=== PATIENT | female | born 1975 | race American Indian/Alaskan Native ===

== ENCOUNTER 2018-01-16 09:15 | Emergency (ER) | payer MEDICAID ==
--- NOTE | 2018-01-16 10:16 | Emergency Department Report ---
ED Back Pain/Injury HPI - General Chief Complaint: Extremity Injury, Lower Stated Complaint: LEG PAIN Time Seen by Provider: 01/16/18 09:42 Source: patient Limitations: No Limitations - History of Present Illness Initial Comments: Patient complain of left lower back pain is radiating down her left leg since yesterday. She said that is worse with increased movement. Denies any fall or any problem with her back. She denies any fever or chills. Pain to left lower back is 6 out of 10 and achy worsen movement. 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 Patient had a history of hysterectomy. Denies any abdominal pain. Denies any urinary burning, frequency or urgency. She has a history of liposuction and hysterectomy and denies any medical problem. Pain is worse with movement better with rest. No medication taken for pain. MD Complaint: back pain Onset/Timin -: days(s) Similar Symptoms Previously: No Place: home Radiation: left leg Severity: moderate Severity scale (0 -10): 6 Quality: aching Consistency: constant Improves With: none Worsens With: walking Context: unknown Associated Symptoms: denies: confusion, weakness, chest pain, numbness, difficulty walking, cough, difficulty urinating, diaphoresis, incontinence, fever/chills, constipation, headaches, abdominal pain, loss of appetite, malaise , nausea/vomiting, rash, seizure, shortness of breath, syncope Treatments Prior to Arrival: other (none) - Related Data Previous Rx's Medication Instructions Recorded Last Taken Type Ibuprofen [Motrin] 600 mg PO Q8H PRN #12 tablet 01/16/18 Unknown Rx Sulfamethoxazole/Trimethoprim 1 each PO BID 10 Days #20 tablet 01/16/18 Unknown Rx [Bactrim DS TAB] Allergies Allergy/AdvReac Type Severity Reaction Status Date / Time No Known Allergies Allergy Unverified 01/16/18 09:28 ED Review of Systems ROS: Stated complaint: LEG PAIN Other details as noted in HPI Constitutional: denies: chills, fever Eyes: denies: eye pain, eye discharge, vision change ENT: denies: ear pain, throat pain, congestion Respiratory: denies: cough, shortness of breath, SOB with exertion, SOB at rest , wheezing Cardiovascular: denies: chest pain, palpitations, edema, syncope Gastrointestinal: denies: abdominal pain, nausea, vomiting, diarrhea, constipation, hematemesis, melena, hematochezia Genitourinary: other (hysterectomy). denies: urgency, dysuria, frequency, hematuria, discharge Musculoskeletal: back pain, arthralgia. denies: joint swelling, myalgia Skin: denies: rash, lesions Neurological: denies: headache, weakness, numbness, paresthesias, confusion, abnormal gait, vertigo ED Past Medical Hx - Past Medical History Previous Medical History?: No - Surgical History Past Surgical History?: Yes Additional Surgical History: lipo. hysterectomy - Family History Family history: hypertension - Social History Smoking Status: Never Smoker Substance Use Type: None - Medications Home Medications: Home Medications Medication Instructions Recorded Confirmed Last Taken Type Ibuprofen [Motrin] 600 mg PO Q8H PRN #12 tablet 01/16/18 Unknown Rx Sulfamethoxazole/Trimethoprim 1 each PO BID 10 Days #20 tablet 01/16/18 Unknown Rx [Bactrim DS TAB] ED Physical Exam - General Limitations: No Limitations General appearance: alert, in no apparent distress - Head Head exam: Present: atraumatic, normocephalic, normal inspection - Eye Eye exam: Present: normal appearance, PERRL, EOMI Pupils: Present: normal accommodation - ENT ENT exam: Present: normal exam, normal orophraynx, mucous membranes moist, TM's normal bilaterally, normal external ear exam - Neck Neck exam: Present: normal inspection, full ROM, other (no C-spine tenderness). Absent: tenderness, lymphadenopathy - Respiratory Respiratory exam: Present: normal lung sounds bilaterally. Absent: respiratory distress, chest wall tenderness - Cardiovascular Cardiovascular Exam: Present: regular rate, normal rhythm, normal heart sounds, rubs. Absent: systolic murmur, diastolic murmur - GI/Abdominal GI/Abdominal exam: Present: soft, normal bowel sounds. Absent: distended, tenderness, guarding, rebound, rigid, organomegaly, mass - Extremities Exam Extremities exam: Present: normal inspection, full ROM, normal capillary refill , other (No cce. + 2 pulses in all extremities, no neurovascular compromise). Absent: tenderness, pedal edema, joint swelling, calf tenderness - Back Exam Back exam: Present: normal inspection, full ROM, other (ambulates without any difficulties). Absent: tenderness, CVA tenderness (R), CVA tenderness (L), muscle spasm, paraspinal tenderness, vertebral tenderness, rash noted - Expanded Back Exam Expanded Back exam: Absent: saddle anesthesia Back exam: Negative Straight Leg Raising: Left, Right - Neurological Exam Neurological exam: Present: alert, oriented X3, normal gait, reflexes normal. Absent: motor sensory deficit - Psychiatric Psychiatric exam: Present: normal affect, normal mood - Skin Skin exam: Present: warm, dry, intact, normal color. Absent: rash ED Course Vital Signs 01/16/18 09:28 Temperature 98.5 F Pulse Rate 68 Respiratory 18 Rate Blood Pressure 104/53 O2 Sat by Pulse 98 Oximetry - Reevaluation(s) Reevaluation #1: 01/16/18 12:57 Patient given Toradol 60 mg IM and Decadron 10 mg IM which relieved her pain. ED Medical Decision Making - Lab Data Lab Results 01/16/18 Range/Units 10:20 Urine Color Yellow (Yellow) Urine Turbidity Clear (Clear) Urine pH 7.0 (5.0-7.0) Ur Specific [place] 1.013 (1.003-1.030) Urine Protein <15 mg/dl (Negative) mg/dL Urine Glucose (UA) Neg (Negative) mg/dL Urine Ketones Neg (Negative) mg/dL Urine Blood Sm (Negative) Urine Nitrite Pos (Negative) Urine Bilirubin Neg (Negative) Urine Urobilinogen < 2.0 (<2.0) mg/dL Ur Leukocyte Esterase Tr (Negative) Urine WBC (Auto) 2.0 (0.0-6.0) /HPF Urine RBC (Auto) 2.0 (0.0-6.0) /HPF U Epithel Cells (Auto) 2.0 (0-13.0) /HPF Urine Bacteria (Auto) 1+ (Negative) /HPF Urine Mucus Few /HPF Urine HCG, Qual Negative (Negative) Urine culture sent - Radiology Data Radiology results: report reviewed Patient had lumbar spine x-ray done and this was dictated by radiologist and reported reviewed by myself. See report below. Patient: ISA PRASAD MR#: [id number] : 1975 Acct:[id number] Age/Sex: 42 / F ADM Date: 01/16/18 Loc: ED Attending Dr: Ordering Physician: PAUL MIKE Date of Service: 01/16/18 Procedure(s): XR spine lumbosacral 2-3V Accession Number(s): [id number] cc: PAUL MIKE Fluoro Time In Minutes: AP AND LATERAL LUMBOSACRAL SPINE: History: Lumbar radiculopathy. The vertebral bodies are well mineralized and normal in alignment and vertebral height with well preserved interspace distances. The visualized portions of the posterior elements are normal. IMPRESSION: Normal study. Transcribed By: TTR Dictated By: PRAVIN VARGAS JR, MD Electronically Authenticated By: PRAVIN VARGAS JR, MD Signed Date/Time: 01/16/181100 DD/ 00 TD/TT: 01/16/181100 - Medical Decision Making This is a 42-year-old female here reported that she has been having left low back pain with radiation of pain to left leg that started yesterday. She denies any urinary symptoms. History of hysterectomy. Patient was seen and examined by myself. Urinalysis was done and positive for nitrites, small amount of blood, leukocyte Estrace and 1+ bacteria. Urine culture sent.. Patient had x-ray of lumbar spine which was dictated by radiologist and report reviewed by myself and findings were normal exam. Patient had normal back and neck exam. Abdominal exam normal and her extremity exam is normal. I discussed with patient her urinalysis report and also her x- ray report and she was understanding. Patient was given Toradol 60 mg IM and Decadron 10 mg and an emergency room yesterday with her pain. Acute cystitis with hematuria-patient received Rocephin 1 g IM in the emergency room without any adverse reaction and to be sent home on Bactrim DS. Lower back pain-Decadron and Toradol and will be discharged home in naproxen I discussed the patient her diagnosis, treatment plan, laboratory results and x- ray results and she voiced understanding. Discharge home with prescription for naproxen and Bactrim DS and follow up with her primary care physician in 3-5 days she voiced understanding. Her vital signs are stable she is afebrile and pain is resolved. - Differential Diagnosis fracture, subluxation, pyelonephritis, UTI, HCG Critical care attestation.: If time is entered above; I have spent that time in minutes in the direct care of this critically ill patient, excluding procedure time. ED Disposition Clinical Impression: Acute cystitis with hematuria Back pain Qualifiers: Back pain location: low back pain Chronicity: acute Back pain laterality: left Sciatica presence: with sciatica Sciatica laterality: sciatica of left side Qualified Code(s): M54.42 - Lumbago with sciatica, left side Disposition: TO HOME OR SELFCARE Is pt being admited?: No Does the pt Need Aspirin: No Condition: Stable Instructions: Urinary Tract Infection in Women (ED), Acute Low Back Pain (ED) Additional Instructions: Follow-up with primary care physician in 2-3 days Take medication as prescribed Referrals: PRIMARY CARE, [Primary Care Provider] - 3-5 Days Forms: Work/School Release Form(ED)
[2018-01-16] MEDS ORDERED: TORADOL IM ONE (10:18)
[2018-01-16] MEDS ORDERED: DECADRON IM ONE (10:18)
[2018-01-16 10:34] LABS: Bacteria,Urine 1+ /HPF (Negative); Bilirubin,Urine NEG (Negative); Blood,Urine SM (Negative); Color,Urine Yellow (Yellow); HCG Qualitative,Urine Negative (Negative); Mucus,Urine FEW /HPF; Protein,Urine <15 mg/dL mg/dL (Negative); Urobilinogen,Urine < 2.0 mg/dL (<2.0)
--- NOTE | 2018-01-16 11:08 | XRay Report ---
AP AND LATERAL LUMBOSACRAL SPINE: History: Lumbar radiculopathy. The vertebral bodies are well mineralized and normal in alignment and vertebral height with well preserved interspace distances. The visualized portions of the posterior elements are normal. IMPRESSION: Normal study.
[2018-01-16] MEDS ORDERED: XYLOCAINE 1% MPF 5 mL INFILTRATI ONE (13:03)
[2018-01-16] MEDS ORDERED: ROCEPHIN IM STA (13:03)
[2018-01-16 13:46] VITALS: BP 106/63
== END 2018-01-16 13:45 | disposition home or self-care (01) ==
LOC: ED 09:15
DX: N30.01 Acute cystitis with hematuria (principal); Z90.710 Acquired absence of both cervix and uterus
CPT/HCPCS: 72100; 81001; 81025; 87076; 87086; 87186; 96372; 99283; J0696; J1100; J1885